=== PATIENT | female | born 1960 | race Caucasian/White ===

== ENCOUNTER 2017-04-25 09:06 | Emergency (ER) | payer OTHER ==
[2017-04-25 10:21] VITALS: BP 123/67
== END 2017-04-25 10:23 | disposition home or self-care (01) ==
LOC: ED 09:06
DX: S61.213A Laceration without foreign body of left middle finger without damage to nail, initial encounter (principal); W26.0XXA Contact with knife, initial encounter; Y92.000 Kitchen of unspecified non-institutional (private) residence as the place of occurrence of the external cause; Z23 Encounter for immunization
CPT/HCPCS: 90715; A4550

== ENCOUNTER → 2017-05-04 | Outpatient (CLI) | payer OTHER ==
[2017-04-25 10:21] VITALS: BP 123/67
== END ==
LOC: LAB 07:20
DX: E55.9 Vitamin D deficiency, unspecified (principal); M20.12 Hallux valgus (acquired), left foot; G57.62 Lesion of plantar nerve, left lower limb; M21.6X2 Other acquired deformities of left foot; M79.672 Pain in left foot

== ENCOUNTER 2017-05-08 11:57 | Emergency (ER) | payer OTHER ==
[2017-05-08 12:13] VITALS: BP 130/68
== END 2017-05-08 12:15 | disposition home or self-care (01) ==
LOC: ED 11:57
DX: S61.412D Laceration without foreign body of left hand, subsequent encounter (principal)